=== PATIENT | female | born 2000 | race Caucasian/White ===

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

== ENCOUNTER 2020-03-25 13:27 | Emergency (ER) | payer BC, MEDICAID ==
--- NOTE | 2020-03-25 14:31 | ED Physician Documentation ---
PD HPI SYNCOPE - Stated complaint Stated Complaint: FAINTED/HEAD INJURY - Chief complaint Chief Complaint: Neuro - History obtained from History obtained from: Patient - History of Present Illness Witnessed: Witnessed Timing - onset: Today Duration: Seconds Preceding symptoms: Abdominal pain (she was at work, had not had breakfast nor much fluid this morning, and had right lateral abd cramping pain abruptly. [place] lightheaded as she went to water fountain and fainted. Reportedly she struck left lateral periorbital area as she fell. Alert within seconds. Concerned about her . Not having abd pain anymore.), Light headed, Generalized weakness Associated symptoms: Abdominal pain (briefly), Other (no vaginal bleeding nor fluid.) Contributing factors: Decreased PO intake, Noxious stimulae. No: Emotional upset Injury occurred: Fell, Head injury (left face). No: Neck injury Similar symptoms before: Has not had sx before Recently seen: Clinic (had [employer]/OB U/S few days ago that was normal.) Review of Systems Constitutional: denies: Fever, Chills Nose: denies: Rhinorrhea / runny nose, Congestion Throat: denies: Sore throat Respiratory: denies: Cough GI: reports: Nausea (consistent for past couple of months with the ). denies: Vomiting, Diarrhea : denies: Dysuria, Frequency, Discharge, Vaginal bleeding Skin: denies: Abrasion (s), Laceration (s) Neurologic: reports: Head injury. denies: Altered mental status, Headache, LOC PD PAST MEDICAL HISTORY - Past Medical History Past Medical History: Yes Neuro: Fainting - Past Surgical History Past Surgical History: No - Present Medications Home Medications: Ambulatory Orders Medication Instructions Recorded Confirmed Azithromycin [Zithromax] 250 mg PO DAILY #6 tablet 01/25/15 guaiFENesin/CODEINE [Robitussin AC] 5 ml PO Q6HR PRN #60 ml 01/25/15 Ondansetron Odt [Zofran] 4 mg TL Q6H PRN #20 tablet 03/25/20 Pyridoxine HCl (Vitamin B6) 25 mg PO BID #50 tablet 03/25/20 [Vitamin B-6] - Allergies Allergies/Adverse Reactions: Allergies Allergy/AdvReac Type Severity Reaction Status Date / Time No Known Drug Allergies Allergy Verified 03/25/20 13:40 - Social History Does the pt smoke?: No Smoking Status: Former smoker Does the pt drink ETOH?: No Does the pt have substance abuse?: No - Immunizations Immunizations are current?: Yes - POLST Patient has POLST: No PD ED PE NORMAL - Vitals Vital signs reviewed: Yes - General General: Alert and oriented X 3, No acute distress, Well developed/nourished - HEENT HEENT: PERRL, EOMI, Other (left lateral periorbital area with local tenderness, without abrasion/lac. No noted deformity. ) - Neck Neck: Supple, no meningeal sign, No adenopathy - Cardiac Cardiac: RRR, No murmur - Respiratory Respiratory: Clear bilaterally - Abdomen Abdomen: Normal bowel sounds, Soft, Non tender, No organomegaly, Other (lower abd fullness c/w , with fundus c/w dates. Bedside U/S showing normal IUP with good FHR, movement and amniotic fluid. ) Results - Vitals Vitals: Vital Signs - 24 hr 03/25/20 03/25/20 13:41 16:09 Temperature 36.5 C Heart Rate 69 68 Respiratory 14 18 Rate Blood Pressure 122/66 110/67 O2 Saturation 99 98 Oxygen O2 Source Room air - Labs Labs: Laboratory Tests 03/25/20 03/25/20 03/25/20 15:15 15:22 15:22 WBC 8.7 RBC 4.38 Hgb 12.8 Hct 38.1 MCV 87.0 MCH 29.2 MCHC 33.6 RDW 12.6 Plt Count 191 MPV 12.4 H Neut # (Auto) 6.5 Lymph # (Auto) 1.6 [place] # (Auto) 0.5 Eos # (Auto) 0.0 Baso # (Auto) 0.0 Absolute Nucleated RBC 0.00 Nucleated RBC % 0.0 Sodium 135 Potassium 3.8 Chloride 102 Carbon Dioxide 24 Anion Gap 9.0 BUN 7 Creatinine 0.5 Estimated GFR (MDRD) 159 Glucose 88 Calcium 9.2 Total Bilirubin 0.8 AST 13 ALT 11 Alkaline Phosphatase 36 L Total Protein 7.7 Albumin 4.1 Globulin 3.6 Albumin/Globulin Ratio 1.1 Lipase 31 Urine Color YELLOW Urine Clarity CLEAR Urine pH 6.5 Ur Specific [place] 1.010 Urine Protein NEGATIVE Urine Glucose (UA) NEGATIVE Urine Ketones NEGATIVE Urine Occult Blood NEGATIVE Urine Nitrite NEGATIVE Urine Bilirubin NEGATIVE Urine Urobilinogen 1 (NORMAL) Ur Leukocyte Esterase NEGATIVE Ur Microscopic Review NOT INDICATED Urine Culture Comments NOT INDICATED PD MEDICAL DECISION MAKING - ED course Complexity details: considered differential (pt does not have concussive symptoms, and clinically has low prob of ICH. Does not need imaging. ), d/w patient Departure - Departure Disposition: 01 Home, Self Care Clinical Impression: Episode of syncope Qualifiers: Syncope type: vasovagal syncope Qualified Code(s): R55 - Syncope and collapse Facial contusion Qualifiers: Encounter type: initial encounter Qualified Code(s): S00.83XA - Contusion of other part of head, initial encounter Qualifiers: Weeks of gestation: 13 weeks Qualified Code(s): Z3A.13 - 13 weeks gestation of Condition: Stable Record reviewed to determine appropriate education?: Yes Instructions: ED Syncope Vasovagal Prescriptions: Ondansetron Odt [Zofran] 4 mg TL Q6H PRN #20 tablet PRN Reason: Nausea / Vomiting Pyridoxine HCl (Vitamin B6) [Vitamin B-6] 25 mg PO BID #50 tablet Comments: Small frequent fluids and stay well-hydrated. Try to eat small amounts regularly through the day including breakfast. Tylenol if needed for pains every 4-6 hours as needed. Vitamin B6 twice daily for the next few weeks to reduce nausea overall. Additionally add ondansetron every 6 hours if needed for nausea. Follow-up with your [facility]. Your basic blood tests and urine test appear normal here. The bedside ultrasound showed a normal appearance of the uterus and fetus. I presume your pain that you had might of been a ligament or muscle pain. Presumedly your fainting episode was a combination of the response to the pain in conjunction with being under hydrated and often lower blood pressure in . Discharge Date/Time: 03/25/20 16:10
[2020-03-25] MEDS ORDERED: ACETAMINOPHEN 325 MG TABLET PO STA (15:14)
[2020-03-25] MEDS ORDERED: ONDANSETRON ODT 4 MG TABLET TL STA (15:14)
[2020-03-25 15:30] LABS: BASOPHILS % (AUTO) 0.2 %; EOSINOPHILS % (AUTO) 0.2 %; HGB - HEMOGLOBIN 12.8 g/dL (12.0-16.0); LYMPHOCYTES # (AUTO) 1.6 10^3/uL (1.5-3.5); MEAN CORPUSCULAR HEMOGLOBIN 29.2 pg (27.0-31.0); MEAN CORPUSCULAR HGB CONC 33.6 g/dL (32.0-36.0); MEAN PLATELET VOLUME 12.4 fL (7.9-10.8); MONOCYTES # (AUTO) 0.5 10^3/uL (0.0-1.0); MONOCYTES % (AUTO) 6.1 %; NEUTROPHILS # (AUTO) 6.5 10^3/uL (1.5-6.6); NEUTROPHILS % (AUTO) 75.3 %; PLT - PLATELET COUNT 191 10^3/uL (130-450); RED BLOOD COUNT 4.38 10^6/uL (4.20-5.40); RED CELL DISTRIBUTION WIDTH 12.6 % (12.0-15.0); WHITE BLOOD COUNT 8.7 x10^3/uL (4.8-10.8)
[2020-03-25 15:36] LABS: BILIRUBIN,URINE NEGATIVE (NEGATIVE); GLUCOSE, URINE (UA) NEGATIVE (NEGATIVE); KETONES,URINE (UA) NEGATIVE (NEGATIVE); LEUKOCYTE ESTERASE, URINE NEGATIVE (NEGATIVE); NITRITE,URINE NEGATIVE (NEGATIVE); OCCULT BLOOD,URINE NEGATIVE (NEGATIVE); PH,URINE 6.5 PH (5.0-7.5); PROTEIN,URINE NEGATIVE (NEGATIVE); UROBILINOGEN,URINE 1 (NORMAL) E.U./dL (NORMAL)
[2020-03-25 15:43] LABS: ALBUMIN 4.1 g/dL (3.2-5.5); ALBUMIN/GLOBULIN RATIO 1.1 (1.0-2.2); BILIRUBIN,TOTAL 0.8 mg/dL (0.2-1.0); CALCIUM 9.2 mg/dL (8.5-10.3); CREATININE 0.5 mg/dL (0.4-1.0); TOTAL PROTEIN 7.7 g/dL (6.7-8.2)
[2020-03-25 15:43] LABS: CLARITY,URINE CLEAR (CLEAR)
[2020-03-25 16:10] VITALS: BP 110/67
== END 2020-03-25 16:10 | disposition home or self-care (01) ==
LOC: ED 13:27
DX: O99.89 Other specified diseases and conditions complicating pregnancy, childbirth and the puerperium (principal); R55 Syncope and collapse; S00.83XA Contusion of other part of head, initial encounter; W18.39XA Other fall on same level, initial encounter; W22.09XA Striking against other stationary object, initial encounter; Y93.89 Activity, other specified; Y92.89 Other specified places as the place of occurrence of the external cause; Y99.0 Civilian activity done for income or pay; Z3A.13 13 weeks gestation of pregnancy; Z87.891 Personal history of nicotine dependence
CPT/HCPCS: 36415; 80053; 81003; 83690; 85025; 99283; 99284; A9270; Q0162; 81001; 87086

== ENCOUNTER 2020-08-10 09:59 | Outpatient (CLI) | payer MEDICAID ==
[2020-08-10 10:33] VITALS: BP 110/63
--- NOTE | 2020-08-11 18:07 | PROCEDURE REPORT ---
- HPI Diagnosis/Indication for NST: Intrauterine growth restriction Current EDU 09/28/20 Gestation 33 Weeks and 0 Days 1 Para 0 Vital Signs Temperature 98.2 F 08/10/20 10:26 Heart Rate 78 08/10/20 10:26 Respiratory Rate 18 08/10/20 10:26 Blood Pressure 110/63 08/10/20 10:26 O2 Saturation 99 08/10/20 10:26 Temperature 98.2 F 08/10/20 10:26 Heart Rate 78 08/10/20 10:26 Respiratory Rate 18 08/10/20 10:26 Blood Pressure 110/63 08/10/20 10:26 O2 Saturation 99 08/10/20 10:26 - NST Procedure NST Procedure Start Date 08/10/20 Start Time 10:17 Stop Time 10:45 Vibroacoustic Stimulation Used No Patient States Movement No - Results and Plan Findings/Impression: Category 1 NST [place] neg continue surveillance
== END 2020-08-10 11:00 | disposition home or self-care (01) ==
LOC: WFO 09:59 → FBP 10:07 → WFO 11:00
PROVIDERS: ATTEND Obstetrics & Gynecology
DX: O36.5930 Maternal care for other known or suspected poor fetal growth, third trimester, not applicable or unspecified (principal); Z3A.33 33 weeks gestation of pregnancy
CPT/HCPCS: 59025

== ENCOUNTER 2020-08-11 20:20 | Outpatient (CLI) | payer MEDICAID ==
[2020-08-11 21:05] VITALS: BP 122/71
--- NOTE | 2020-08-12 18:03 | PROCEDURE REPORT ---
- HPI Diagnosis/Indication for NST: Intrauterine growth restriction Current EDU 09/28/20 Gestation 33 Weeks and 1 Days 1 Para 0 Vital Signs Temperature 99.5 F 08/11/20 20:30 Heart Rate 100 08/11/20 20:30 Respiratory Rate 16 08/11/20 20:30 Blood Pressure 122/71 08/11/20 20:30 O2 Saturation 100 08/11/20 20:30 Temperature 99.5 F 08/11/20 20:47 Heart Rate 100 08/11/20 20:47 Respiratory Rate 16 08/11/20 20:47 Blood Pressure 122/71 08/11/20 20:47 O2 Saturation 100 08/11/20 20:47 - NST Procedure NST Procedure Start Time 10:17 Stop Time 10:45 - Results and Plan Findings/Impression: Category 1 NST [place] neg Unilateral back pain pt may call if desires a PT appointment.
--- NOTE | 2020-08-14 08:50 | PROVIDER PROGRESS NOTE ---
Subjective - Subjective Subjective: [facility] 09/28/20 Gestation 33 Weeks and 1 Days 1 Para 0 Vital Signs Temperature 99.5 F 08/11/20 20:30 Heart Rate 100 08/11/20 20:30 Respiratory Rate 16 08/11/20 20:30 Blood Pressure 122/71 08/11/20 20:30 O2 Saturation 100 08/11/20 20:30 Temperature 99.5 F 08/11/20 20:47 Heart Rate 100 08/11/20 20:47 Respiratory Rate 16 08/11/20 20:47 Blood Pressure 122/71 08/11/20 20:47 O2 Saturation 100 08/11/20 20:47 - NST Procedure NST Procedure Start Time 10:17 Stop Time 10:45 - Results and Plan Findings/Impression: Category 1 NST [place] neg Impression: lumbago. Plan: pt may call if desires a PT appointment.
== END 2020-08-11 21:15 | disposition home or self-care (01) ==
LOC: WFO 20:20 → FBP 20:22 → WFO 21:15
PROVIDERS: ATTEND Obstetrics & Gynecology
DX: O36.5930 Maternal care for other known or suspected poor fetal growth, third trimester, not applicable or unspecified (principal); O99.89 Other specified diseases and conditions complicating pregnancy, childbirth and the puerperium; M54.5 Low back pain; Z3A.33 33 weeks gestation of pregnancy
CPT/HCPCS: 59025; 99212

== ENCOUNTER 2020-08-19 11:03 | Outpatient (CLI) | payer MEDICAID ==
[2020-08-19 11:20] VITALS: BP 108/60
--- NOTE | 2020-08-19 13:16 | Ultrasound Report ---
PROCEDURE: OB Biophysical Profile INDICATIONS: non reactive NST OUTSIDE/PRIOR DATING DATA: Last menstrual period (LMP): Unsure. First dating scan (date and location): Not available. TECHNIQUE: Real-time scanning was performed of the fetus, with image documentation and biometric robbi surements. Biophysical profile was also obtained. COMPARISON: None available. FINDINGS: General: A single living intrauterine gestation is present. Presentation: Cephalic Placenta: Placental position is left anterior, without previa. Amniotic fluid index: 17.4 cm, within normal limits for gestational age. heart rate: 141 beats per minute. Maternal cervical canal: 3.3 cm long; normal length is 2.5 cm or more. biometrics: Biparietal diameter: 8.0 cm, 31 weeks 6 days Head circumference: 28.3 cm, 31 weeks Abdominal circumference: 27.5 cm, 31 weeks 4 days Femur length: 5.8 cm, 30 weeks 3 days Estimated gestational age from initial scan: not available. Composite gestational age from present scan: 31 weeks 2 days Estimated weight and percentile: 1724 g Measurement variability in biometric dating: +/- 10 days from 12-20 weeks gestation, +/- 2 weeks from 20-30 weeks gestation, +/- 3 weeks at 30 weeks gestation or later. Biophysical profile: Tone: 2 points. Movement: 2 points. Respiration: 0 points. Largest pocket of fluid: 2 points. 5.2 cm. Umbilical artery Doppler: Systolic/diastolic ratios of 3.5, 3.1, and 3.5. IMPRESSION: 1. Single living intrauterine patency demonstrated in cephalic position. 2. Composite gestational age of 31 weeks 2 days. Growth percentile unable to be calculated at this ti me in the absence of prior imaging studies or known last menstrual period. 3. Biophysical profile score of 6/8. respiration not visualized during course of the study. 4. Amniotic cord Doppler interrogation within normal limits with preserved diastolic flow. Reviewed by: Steve Munoz MD on 08/19/2020 12:15 PM [facility] Approved by: Steve Munoz MD on 08/19/2020 12:15 PM LUL Station ID: [id number]
--- NOTE | 2020-08-19 18:53 | PROVIDER PROGRESS NOTE ---
- HPI Chief Complaint: Other (Patient is a 20 yo at 34+2 wga with complicated by IUGR here with decreased FM. Followed by [facility]. Has had series on NRNST and all NST to be performed at [facility] 08/17/2020. Patient reports no significant FM in 2 days.) Current : Current EDU 09/28/20 Gestation 34 Weeks and 2 Days 1 Para 0 Vital Signs Temperature 99.1 F 08/19/20 11:15 Heart Rate 76 08/19/20 11:15 Respiratory Rate 17 08/19/20 11:15 Blood Pressure 108/60 08/19/20 11:15 O2 Saturation 99 08/19/20 11:15 Temperature 99.1 F 08/19/20 11:15 Heart Rate 76 08/19/20 11:15 Respiratory Rate 17 08/19/20 11:15 Blood Pressure 108/60 08/19/20 11:15 O2 Saturation 99 08/19/20 11:15 - Exam GEN:NAD HEENT: NCAT CV: RR RESP: nl effort ABD: gravid, S&NT/ND EXT:WWP NST 125 od marc 15x15 accels no decels TOCO: quiet BPP 6/8; less 2 for lack of resp effort - Procedures OB Procedure Performed: Other (BPP) NST Procedure: NST Procedure Start Date 08/19/20 Start Time 11:10 Stop Time 11:40 Vibroacoustic Stimulation Used No Patient States Movement decrease FM Service Date of procedure: 08/19/20 Procedure Details: Cat I tracing in setting of recurrent NRNST and decreased FM. BPP 6/8 Recommend repeat BPP in 24 hours. Patient scheduled to see MFM tomorrow. Contacted MFM office with update in care and will have BPP tomorrow in [place] Warning signs and kick counts reviewed. FU in clinic with MFM in 24 hours.
== END 2020-08-19 13:15 | disposition home or self-care (01) ==
LOC: WFO 11:03 → FBP 11:06 → WFO 13:15
PROVIDERS: ATTEND Obstetrics & Gynecology
DX: O36.8130 Decreased fetal movements, third trimester, not applicable or unspecified (principal); O36.5930 Maternal care for other known or suspected poor fetal growth, third trimester, not applicable or unspecified; Z3A.34 34 weeks gestation of pregnancy
CPT/HCPCS: 76819; 99214

== ENCOUNTER 2020-08-26 08:00 | Outpatient (CLI) | payer MEDICAID ==
[2020-08-26 21:06] LABS: TRICHOMONAS VAGINALIS DNA NEGATIVE (NEGATIVE)
== END 2020-08-26 23:59 | disposition home or self-care (01) ==
LOC: LAB.R 08:00
PROVIDERS: ATTEND Obstetrics & Gynecology
DX: O09.899 Supervision of other high risk pregnancies, unspecified trimester (principal)
CPT/HCPCS: 87491; 87591; 87661; 87797

== ENCOUNTER 2020-09-07 18:40 | Outpatient (CLI) | payer MEDICAID ==
[2020-09-07 19:03] VITALS: BP 130/65
--- NOTE | 2020-09-08 14:34 | PROVIDER PROGRESS NOTE ---
- HPI Chief Complaint: Labor Check Current : Current EDU 09/28/20 Gestation 37 Weeks and 0 Days 1 Para 0 Vital Signs Temperature 37.4 C 09/07/20 19:00 Heart Rate 105 H 09/07/20 19:00 Respiratory Rate 18 09/07/20 19:00 Blood Pressure 130/65 09/07/20 19:00 O2 Saturation 100 09/07/20 19:00 Temperature 37.4 C 09/07/20 19:08 Heart Rate 118 H 09/07/20 19:08 Respiratory Rate 16 09/07/20 19:08 Blood Pressure 130/65 09/07/20 19:08 O2 Saturation 99 09/07/20 19:08 - Procedures OB Procedure Performed: NST Diagnosis/Indication for NST: Other (Rule out labor) NST Procedure: NST Procedure Start Time 11:10 Stop Time 11:40 Findings: Reactive NST. no contractions minimal cervical changes. - Plan Plan: Continuwe with [facility]
== END 2020-09-07 19:40 | disposition home or self-care (01) ==
LOC: WFO 18:40 → FBP 18:43 → WFO 19:40
PROVIDERS: ATTEND Obstetrics & Gynecology
DX: Z34.03 Encounter for supervision of normal first pregnancy, third trimester (principal); Z3A.37 37 weeks gestation of pregnancy
CPT/HCPCS: 99213

== ENCOUNTER 2020-09-09 07:26 | Inpatient (IN) | payer BC, MEDICAID ==
[2020-09-09 09:14] LABS: BASOPHILS % (AUTO) 0.3 %; EOSINOPHILS # (AUTO) 0.1 10^3/uL (0.0-0.7); EOSINOPHILS % (AUTO) 0.9 %; HGB - HEMOGLOBIN 11.5 g/dL (12.0-16.0); LYMPHOCYTES # (AUTO) 1.8 10^3/uL (1.5-3.5); LYMPHOCYTES % (AUTO) 27.1 %; MEAN CORPUSCULAR HEMOGLOBIN 28.9 pg (27.0-31.0); MEAN CORPUSCULAR HGB CONC 33.5 g/dL (32.0-36.0); MEAN CORPUSCULAR VOLUME 86.2 fL (81.0-99.0); MEAN PLATELET VOLUME 12.4 fL (7.9-10.8); MONOCYTES # (AUTO) 0.7 10^3/uL (0.0-1.0); MONOCYTES % (AUTO) 10.4 %; NEUTROPHILS # (AUTO) 3.9 10^3/uL (1.5-6.6); NEUTROPHILS % (AUTO) 60.4 %; PLT - PLATELET COUNT 163 10^3/uL (130-450); RED BLOOD COUNT 3.98 10^6/uL (4.20-5.40); RED CELL DISTRIBUTION WIDTH 12.9 % (12.0-15.0); WHITE BLOOD COUNT 6.5 x10^3/uL (4.8-10.8)
[2020-09-09] MEDS ORDERED: METHYLERGONOVINE 0.2 MG/ML VIAL IM PRN ×2 (10:45)
[2020-09-09] MEDS ORDERED: TRANEXAMIC ACID 1,000 MG in SODIUM CHLORIDE 0.9% 100ML 100 ML IV PRN (10:45)
[2020-09-09] MEDS ORDERED: CARBOPROST TROMETHAMINE 250 MCG/ML AMP IM PRN ×2 (10:45)
[2020-09-09] MEDS ORDERED: miSOPROStoL 200 MCG TABLET BC PRN (10:45)
[2020-09-09] MEDS ORDERED: OXYTOCIN 10 UNIT/ML VIAL IM PRN (10:45)
[2020-09-09] MEDS ORDERED: TERBUTALINE 1 MG/ML VIAL SUBQ PRN (10:45)
[2020-09-09] MEDS ORDERED: LIDOCAINE-MPF 1% 30 ML VIAL ID PRN (10:45)
[2020-09-09] MEDS ORDERED: OXYTOCIN/SODIUM CHLORIDE 500 ML IV PRN ×2 (10:45)
[2020-09-09] MEDS ORDERED: SODIUM CHLORIDE FLUSH 0.9% 10 ML SYRINGE IVP PRN (10:45)
[2020-09-09] MEDS ORDERED: miSOPROStoL 200 MCG TABLET PR PRN (10:45)
--- NOTE | 2020-09-09 10:45 | ANESTHESIA ---
Pre-Anesthesia VS, & Labs - Diagnosis induction, IUP - Procedure Epidural for (early consult) Vital Signs: Temp Pulse Resp BP Pulse Ox 36.6 C 103 H 16 120/75 09/09/20 07:47 09/09/20 07:47 09/09/20 07:47 09/09/20 07:47 Height: 4 ft 11 in Weight (kg): 78.925 kg Body Mass Index: 35.1 BMI Classification: Obese - NPO Last Fluid Intake: t/o day Last Food Intake: breakfast, full - Is Patient ?: Yes - Lab Results Current Lab Results: Laboratory Tests 09/09/20 08:40: WBC 6.5, RBC 3.98 L, Hgb 11.5 L, Hct 34.3 L, MCV 86.2, MCH 28.9, MCHC 33.5, RDW 12.9, Plt Count 163, MPV 12.4 H, Neut # (Auto) 3.9, Lymph # (Auto) 1.8, [place] # (Auto) 0.7, Eos # (Auto) 0.1, Baso # (Auto) 0.0, Absolute Nucleated RBC 0.00, Nucleated RBC % 0.0 Lab results reviewed: Yes Fish Bones: 09/09/20 08:40 Home Medications and Allergies Allergies/Adverse Reactions: Allergies Allergy/AdvReac Type Severity Reaction Status Date / Time No Known Drug Allergies Allergy Verified 03/25/20 13:40 Anes History & Medical History - Anesthetic History Anesthesia Complications: reports: No previous complications Family history of Anesthesia Complications: Denies Family history of Malignant Hyperthermia: Denies - Medical History Cardiovascular: reports: None Pulmonary: reports: None Gastrointestinal: reports: None Urinary: reports: None Neuro: reports: Seizure disorder (as child, resolved, no meds), Fainting Musculoskeletal: reports: None Endocrine/Autoimmune: reports: None Blood Disorders: reports: None Smoking Status: Former smoker Psychosocial: reports: No issues indicated History of Cancer?: No Exam General: Alert, Oriented x3, Cooperative Dental: WNL Mouth Openin Fingerbreadth Neck Mobility: Normal Mallampati classification: II Thyromental Distance: 4-6 cm Respiratory: Lungs clear, Normal breath sounds, No respiratory distress Cardiovascular: Regular rate Neurological: Normal speech Mental/Cognitive Status: Alert/Oriented X3, Normal for patient Cognitive Status: Within normal limits Plan Anesthesia Type: Epidural Consent for Procedure(s) Verified and Reviewed: Yes Code Status: Attempt Resuscitation ASA classification: 2-Mild systemic disease Is this case an emergency?: No
--- NOTE | 2020-09-09 10:45 | HISTORY & PHYSICAL EXAMINATION ---
History of Present Illness - History of Present Illness HPI Comment/Other: CC: induction of labor HPI: here for IOL due to IUGR. Had some contractions last hs q10min but they have resolved. No VB, no LOF. Good FM. ROS: no fevers, no cough, feeling well. PMH: --syncope related to pain --Episode of status seizure at 8yo requiring induced coma for 4 days. No true seizures since that time. Pt has never been on antiseizure medications. Mother of patient reports normal EEG and brain imaging at 14yo. Episodes of syncope can be "stopped" by sitting down. No hx of cardiac abnormalities and pt does not feel an irregular heart beat when she feels faint. No episodes of incontinence. --[place] --Persistent n/v of , emesis weekly --Learning disability with dyslexia, needing special education in school, did graduate high school PSH: neg Allergies: neg Meds: PNV, iron, B6. PRN zofran and [place] SH: no t/e/d. Lives with partner's mother. FH: no anesthesia problems OB: G1=current, initial care in [place]. RAFAELA 09/28/20 by 12w6d US on 03/22/20. LMP unknown. Anatomy normal, fundal placenta, normal fluid, EFW 7%ile GBS neg, STI neg, A+, RI, , 1h 97 S/p Tdap and flu vax Complications: IUGR diagnosed at 24w anatomy scan, not ideally dated (by 12w US alone). S/p MFM consultation with persistent EFW <10%ile, normal fluid. Last S/D ratio was 3.1 in the 85%ile O: AVSS Alert, pleasant, NAD. Relies on mother to answer some medical questions. Abd soft, nt/nd, gravid SVE fingertip/50/-3 Cervical balloon placed with speculum without difficulty Hct 34 NST category 1 [place] irregular UCs A/P: 20yo G1 at 37w2d by 12w6d US here for indicated IOL due to persistent IUGR with borderline abnormal dopplers. Baby tolerating spontaneous contractions well. Plan ripening with balloon + pitocin. Pt aware that her risk of c- section is a bit higher due to the IUGR. Hx of seizure disorder, no seizures for the past 10y. Early epidural for pain control. Lorazepam and keppra in the pyxis PRN. Episodes of syncope related to pain: pt will call RN PRN feeling faint, FOB aware of where emergency alerts are, maintain hydration, ambulate with assist PRN. VTE prophylaxis: extended period of epidural anticipated, will use SCDs as able once epidural has been placed. Fetus: Vertex, IUGR, normal anatomy, no genetic screening done, category 1 NST. History - Past Medical History Neuro: reports: Fainting MRSA Hx?: No - POLST Patient has POLST: No Meds/Allgy - Home Medications Home Medications: Ambulatory Orders Medication Instructions Recorded Confirmed Azithromycin [Zithromax] 250 mg PO DAILY #6 tablet 01/25/15 guaiFENesin/CODEINE [Robitussin AC] 5 ml PO Q6HR PRN #60 ml 01/25/15 Ondansetron Odt [Zofran] 4 mg TL Q6H PRN #20 tablet 03/25/20 Pyridoxine HCl (Vitamin B6) 25 mg PO BID #50 tablet 03/25/20 [Vitamin B-6] - Allergies Allergies/Adverse Reactions: Allergies Allergy/AdvReac Type Severity Reaction Status Date / Time No Known Drug Allergies Allergy Verified 03/25/20 13:40 Exam - Vital Signs Vital Signs: Vital Signs x48h Temp Pulse Resp BP 09/09/20 07:47 97.9 F 103 H 16 120/75 Conclusion/Plan - Lab Results Fish Bones: 09/09/20 08:40
[2020-09-09] MEDS ORDERED: levETIRAcetam INJ 1,000 MG in SODIUM CHLORIDE 0.9% 100ML 100 ML IV PRN (10:52)
[2020-09-09] MEDS ORDERED: LORazepam 2 MG/ML VIAL IVP PRN (10:53)
[2020-09-09] MEDS: OXYTOCIN/SODIUM CHLORIDE 500 ML IV SCH (11:28)
[2020-09-09] MEDS: LACTATED RINGERS 1,000 ML IV SCH ×2 (11:28→22:07)
[2020-09-09] MEDS ORDERED: ZOLPIDEM 5 MG TABLET PO PRN (11:42)
[2020-09-09] MEDS ORDERED: FAMOTIDINE 20 MG/2 ML SYRINGE IVP PRN (11:42)
[2020-09-09] MEDS ORDERED: MAG HYDROX/AL HYDROX/SIMETH 30 ML UDC PO PRN (11:42)
[2020-09-09 14:31] LABS: CREATININE,URINE 61.4 mg/dL; PROTEIN/CREATININE RATIO,URINE 0.1 (<=0.2)
[2020-09-09] MEDS ORDERED: SODIUM CHLORIDE FLUSH 0.9% 10 ML SYRINGE IVP SCH (17:00)
[2020-09-09] MEDS: fentaNYL 100 MCG/2 ML VIAL IVP PRN (22:07)
[2020-09-09 22:31] LABS: RUPTURE OF MEMBRANES PLUS POSITIVE (NEGATIVE)
[2020-09-10] MEDS: LACTATED RINGERS 1,000 ML IV SCH (04:28)
[2020-09-10] MEDS: ONDANSETRON 4 MG/2 ML VIAL IVP PRN ×2 (08:17→08:18)
--- NOTE | 2020-09-10 08:50 | PROVIDER PROGRESS NOTE ---
Subjective - Subjective Subjective: S: mild UC, able to sleep last night, no pelvic sensations other than the contractions, O: AVSS, smiling, NAD, does not change demeanor with contractions SVE 4-5/100/-2. AROM forebag clear. Category 1 NST, toco q3-4 A/P: G1 37w IOL for IUGR, baby tolerating very well. No SVE change since balloon was removed at 12h even though she had SROM a few hours later. Increasing pitocin has not helped. AROM forebag now, recheck SVE in 1h. If unchanged then doubtful that increasing pitocin will help much so will transition to misoprostol. Anticipate when UC become adequate. Objective - Vital Signs/Intake & Output Intake & Output: Intake & Output 09/07/20 09/08/20 09/09/20 09/10/20 23:59 23:59 23:59 23:59 Intake Total 1048.75 476.25 Output Total 1075 Balance -26.25 476.25 - Lab Results Fish Bones: 09/09/20 08:40 Other Labs: Lab Results x24hrs 09/09/20 09/09/20 09/09/20 Range/Units 21:35 12:18 08:40 WBC 6.5 (4.8-10.8) x10^3/uL RBC 3.98 L (4.20-5.40) 10^6/uL Hgb 11.5 L (12.0-16.0) g/dL Hct 34.3 L (37.0-47.0) % MCV 86.2 (81.0-99.0) fL MCH 28.9 (27.0-31.0) pg MCHC 33.5 (32.0-36.0) g/dL RDW 12.9 (12.0-15.0) % Plt Count 163 (130-450) 10^3/uL MPV 12.4 H (7.9-10.8) fL Neut # (Auto) 3.9 (1.5-6.6) 10^3/uL Lymph # (Auto) 1.8 (1.5-3.5) 10^3/uL [place] # (Auto) 0.7 (0.0-1.0) 10^3/uL Eos # (Auto) 0.1 (0.0-0.7) 10^3/uL Baso # (Auto) 0.0 (0.0-0.1) 10^3/uL Absolute Nucleated RBC 0.00 x10^3/uL Nucleated RBC % 0.0 /100WBC Urine Creatinine 61.4 mg/dL Ur Total Protein Timed 6 mg/dL Protein/Creatinin Ratio 0.1 (<=0.2) Membranes Rupture POSITIVE A (NEGATIVE)
[2020-09-10] MEDS ORDERED: ROPIVACAINE 0.2% 0 MG/0 ML BAG EP ONE (09:38)
[2020-09-10] MEDS: fentaNYL 100 MCG/2 ML VIAL IVP PRN (09:41)
[2020-09-10] MEDS ORDERED: fentaNYL 100 MCG/2 ML VIAL ONE (09:45)
--- NOTE | 2020-09-10 10:02 | ANESTHESIA PROCEDURE NOTE ---
Anesthesia Epidural Template - Other Comments Other Comments: Called to place epidural. Patient was unwilling to sit up on side of bed for placement and had limited ability to maintain stillness. Nurse administered IV fentanyl to help with pain control and afterwards, patient remained unable to safely position herself for Epidural placement. Patient was examined by RN and found to be complete. At this point, epidural placement was not appropriate but will be available if circumstances change.
[2020-09-10] MEDS ORDERED: METHYLERGONOVINE 0.2 MG/ML VIAL ONE (10:13)
[2020-09-10] MEDS ORDERED: LIDOCAINE-MPF 1% 30 ML VIAL ONE (10:13)
[2020-09-10] MEDS ORDERED: HYDROCORTISONE 1% CREAM 28 GM TUBE PR PRN (10:31)
[2020-09-10] MEDS ORDERED: WITCH HAZEL/GLYCERIN 1 PAD TOP PRN (10:31)
[2020-09-10] MEDS ORDERED: ONDANSETRON ODT 4 MG TABLET TL PRN (10:31)
[2020-09-10] MEDS ORDERED: SIMETHICONE CHEW 80 MG TABLET PO PRN (10:31)
[2020-09-10] MEDS ORDERED: OXYTOCIN/SODIUM CHLORIDE 500 ML IV SCH (11:00)
[2020-09-10] MEDS: ACETAMINOPHEN 500 MG TABLET PO SCH ×2 (14:03→21:58)
[2020-09-10] MEDS: IBUPROFEN 600 MG TABLET PO SCH ×2 (14:04→20:13)
[2020-09-10] MEDS: OXYTOCIN/SODIUM CHLORIDE 500 ML IV SCH (14:07)
--- NOTE | 2020-09-10 17:41 | DELIVERY NOTE ---
Delivery Note - Labor Labor: positive: Induced by oxytocin - Infant Delivery Method Delivery Method: positive: Spontaneous vaginal delivery - Cervical Ripening Method Cervical Ripening Method: positive: Balloon device, Oxytocin - Presentation Presentation: positive: Vertex - Nuchal Cord Nuchal Cord: positive: Present (2x, not able to be reduced, clamped x2 and cut on perineum) - Anesthetic Anesthetic Type: - Amniotic Fluid Description Amniotic Fluid Description: positive: Clear - Laceration Laceration: positive: None - Delivery Outcome Delivery Outcome: positive: Livebirth - [place]: positive: Placed in direct skin contact with mother, Stimulated, Warmed, [place] used [place] sex: positive: Female - Cord Cord: positive: 3 vessels - Placenta Placenta: positive: Intact, Spontaneous - Estimated Blood Loss Estimated Blood Loss (in cc): 500 - Post Delivery Events Post Delivery Events: positive: No post delivery events - Delivery Comments (Free Text/Narrative) Delivery Comments (Free Text/Narrative): 1st stage: IOL for IUGR in 2-7%ile since her 20w ultrasound. Started with balloon and pitocin. Stalled at 6cm but then rapidly progressed after AROM of forebag. 2nd stage: Pushed effectively over a few minutes to deliver OA over an intact perineum. FHT's were in the 70s at , was preparing for episiotomy, but she delivered. Double nuchal cord. Shoulders and body easily delivered. 3rd stage: Placenta delivered spontaneously/intact. Active management of the 3rd stage performed with pitocin bolus after delivery of the baby. Had gushes of bleeding inconsistent with usual. Treated with pitocin followed by methergine. Bleeding improved but continued. Tranexamic acid given. Total EBL was fine at 500cc and bleeding tapered off quickly after the TXA. Uterine tone was excellent throughout. Bimanual massage performed throughout. No lacerations. Patient with learning disabilities, will get a high school social science teacher consult for community resources. Has good support at home.
[2020-09-10] MEDS: DOCUSATE SODIUM 100 MG CAPSULE PO SCH (20:41)
[2020-09-11] MEDS: IBUPROFEN 600 MG TABLET PO SCH ×3 (02:00→09:35)
[2020-09-11] MEDS: ACETAMINOPHEN 500 MG TABLET PO SCH ×2 (05:31→13:42)
[2020-09-11] MEDS: DOCUSATE SODIUM 100 MG CAPSULE PO SCH (09:35)
--- NOTE | 2020-09-11 13:05 | PROVIDER PROGRESS NOTE ---
Subjective - Subjective Subjective: Feeling well. Eating, ambulating, urinating well. No heavy bleeding or significant pain. Mood is good. AVSS alert, smiling, NAD. Abd soft, nt/nd. Fundus firm, NT, at umbilicus. No LE edema. A/P: 20yo P1 PPD#1 s/p at term, doing well. Social work consult for her learning disabilities Rh +, RI, , s/p Tdap and flu vax, <21yo no pap. Objective - Vital Signs/Intake & Output Vital Signs: Vital Signs x48h Temp Pulse Resp BP Pulse Ox 09/11/20 09:00 97.9 F 61 18 99/52 L 100 Intake & Output: Intake & Output 09/08/20 09/09/20 09/10/20 09/11/20 23:59 23:59 23:59 23:59 Intake Total 1048.75 1500.10 Output Total 1075 450 Balance -26.25 1050.10 - Lab Results Fish Bones: 09/09/20 08:40
[2020-09-12 06:20] VITALS: BP 122/73
--- NOTE | 2020-09-12 08:50 | Discharge Plan ---
Discharge Plan Problem Reviewed?: Yes Disposition: Home, Self Care Condition: Good Diet: Regular Activity Restrictions: pelvic rest x6w Shower Restrictions: No Driving Restrictions: No No Smoking: If you smoke, Please STOP! Call for help. Follow-up with: Nelia Burk MD [Provider Admit Priv/Credential] - 1 Week
[2020-09-12] MEDS: DOCUSATE SODIUM 100 MG CAPSULE PO SCH (09:14)
--- NOTE | 2020-09-12 13:42 | Labor Flowsheet ---
Labor Flowsheet Datetime Report Generated by CPN: 09/12/2020 13:42 Datetime: 09/12/2020 09:16 VITAL SIGNS NBP Sys/Anuradha/Mean (mmHg): 124 : 81 : 91 Pulse: 65 Datetime: 09/10/2020 19:34 SpO2 (%): 98 Datetime: 09/10/2020 12:30 Stage of : Datetime: 09/10/2020 11:36 PAIN Pain Scale: 0 Pain Assessment Comments: resting Datetime: 09/10/2020 11:19 Medication Comments: bolus completed, Pitocin restarted 50ml/hr Datetime: 09/10/2020 10:45 Pain Goal: 6 Datetime: 09/10/2020 10:38 Temperature (C): 37.0 Datetime: 09/10/2020 10:11 MEDICATIONS Pitocin (milliunits): Started @ 50mu/ PP pit started Datetime: 09/10/2020 10:09 Patient Care Comments: 02 off/stopped Datetime: 09/10/2020 10:08 UTERINE ACTIVITY Monitor Mode: Palpation Frequency (min): 2-3 Quality: Strong Duration (sec): 50-60 Pattern: Normal: <= 5 Contractions in 10 Minutes Resting Tone (Palpate): Relaxed ASSESSMENT A Monitor Mode: Telemetry FHR Baseline Changes: No Baseline Change Variability: Moderate 6-25 bpm Accelerations: None Decelerations: Late; Variable Category: Category II Datetime: 09/10/2020 10:04 LaborFlag: Labor Datetime: 09/10/2020 10:00 Comments: MD aware of decelerations Datetime: 09/10/2020 09:56 COMMUNICATION Communication: Provider at Bedside Datetime: 09/10/2020 09:51 VAGINAL EXAM Dilatation (cm): 10.0 Effacement (%): 100 Station: 1 Exam by: c. gambs Datetime: 09/10/2020 09:41 Analgesics/Sedatives: Fentanyl (mcg) @ 100mcg Datetime: 09/10/2020 09:30 FHR Baseline Rate : 135 Datetime: 09/10/2020 09:27 Communication Comments: recheck 1hr, place eugene after pt. comfortable with epidural and call MD. Datetime: 09/10/2020 09:15 Patient Position/Activity: Right Lateral Datetime: 09/10/2020 09:12 Monitor Interventions for UA: [place] Adjusted Datetime: 09/10/2020 09:02 Monitor Interventions for FHR: Ultrasound Adjusted Datetime: 09/10/2020 08:53 Pain Coping: Crying Comfort Measures: Coaching; Family Support Datetime: 09/10/2020 08:18 Antiemetics/Antacids: Zofran (mg) @ 4mg Datetime: 09/10/2020 08:10 Membranes Rupture Method: Artificial Amniotic Fluid Color: Clear Amniotic Fluid Amount: Small Amniotic Fluid Odor: Normal Datetime: 09/10/2020 08:09 Vaginal Bleeding: None Vaginal Exam Comments: no change Datetime: 09/10/2020 08:07 TEACHING Instructional Method: Verbal Plan of Care: Plan of Care Discussed; Vaginal Delivery; Labor; Induction Labor/Induction: Labor Stages; Induction; Artificial Rupture of Membranes Pain Management: Epidural Teaching Comments: Dr. Burk discussing POC Datetime: 09/10/2020 07:55 Cervix, Consistency: Soft Cervix, Position: Midposition Datetime: 09/10/2020 07:32 I/O Interventions: Up to BR Datetime: 09/10/2020 07:29 Unit Routine: Visiting Policy Medications: Cervical Ripening Related: Common Discomforts of Datetime: 09/10/2020 07:27 MATERNAL ASSESSMENT Level of Consciousness: Alert DTR's/Clonus: DTRs 2+; No Clonus Headache: Denies Breath Sounds, Left: Clear and Equal Breath Sounds, Right: Clear and Equal Nausea/Vomiting: Denies RUQ Epigastric Pain: Denies Datetime: 09/10/2020 07:26 Pitocin Checklist: At Least 1 Acceleration of 15 bpm x 15 Seconds in 30 Minutes or Adequate Variabi lity; No More than 1 Late Deceleration Occurred in Past 30 Minutes; No More than 2 Variable Decelerat ions > 60 Seconds in Duration and decreasing >60 bpm in 30 minutes; No More than 5 Uterine Contractio ns in 10 Minutes for any 20 Minute Interval Datetime: 09/10/2020 07:21 Pain Presence: None/Denies Datetime: 09/10/2020 07:00 Oxygen Method: Room Air Datetime: 09/10/2020 06:36 Pain Type: Contraction Pain Location: Abdomen Datetime: 09/10/2020 06:11 Respirations: 16 Datetime: 09/10/2020 05:30 Pain Relief Measures: Comfort Measures Datetime: 09/10/2020 02:02 Provider Notified (Name): Bhargavi Datetime: 09/09/2020 22:10 PATIENT CARE IV/Blood Work: New IV Bag Hung Datetime: 09/09/2020 22:00 Contraction Comments: Pt was getting up to BR, ROM+ collection and VE and had not yet adjusted toco Datetime: 09/09/2020 21:00 Membrane Status: Ruptured Membranes Ruptured Date/Time: 09/09/2020 21:00 Datetime: 09/09/2020 18:00 Notification Reason: Status Update
--- NOTE | 2020-09-12 18:41 | DISCHARGE SUMMARY ---
Physician: Nelia Burk MD DATE OF ADMISSION: 09/09/2020 DATE OF DISCHARGE: 09/12/2020 ADMISSION DIAGNOSES 1. Intrauterine at 37 weeks. 2. Intrauterine growth restriction. 3. Learning disability of unknown characterization. DISCHARGE DIAGNOSES 1. Status post spontaneous vaginal delivery at term. 2. Learning disability. OPERATIONS AND PROCEDURES: On 09/10/2020, spontaneous vaginal delivery of a liveborn female, uncompl icated. HOSPITAL COURSE: The patient was induced for her IUGR at 37 weeks. She was induced with Pitocin and a cervical ripening balloon as well as AROM. She was not medicated and did very well. Her postpar laura course was complicated by her learning disabilities. She seems to have slow cognitive processing speed. She is very attentive to her baby and loving to her baby. She has good support and her part ner, mother, and [id number]. Social work was contacted and they were offered community resources. Infant care at home was reinforced multiple times by the nursing staff and shaken baby precautions were also given repeatedly. The patient does live with her qbxcrn-vm-gxi who appears to be without c ognitive disability. By day #2, she was eating, ambulating, and urinating without difficulties. She has chosen to bottle feed. She was not having any heavy bleeding or significant pain. No mood changes. She i s afebrile with normal vital signs. Alert and smiling, and in no apparent distress. Abdomen is soft , nontender, and nondistended. Fundus firm, nontender, and at the umbilicus. No lower extremity clu bbing, cyanosis or edema. Pre-delivery hematocrit was 34.3 and estimated blood loss was normal. She is Rh positive, rubella im mune, varicella immune, and has received both her Tdap and influenza vaccines. She did not have a Pa p smear. She is under 21 years old. DISCHARGE INSTRUCTIONS: Routine precautions given. Followup in 1 week in the clinic. DISCHARGE DISPOSITION: Home. CONDITION: Good. TD: 09/12/2020 08:49
== END 2020-09-12 13:40 | disposition home or self-care (01) | DRG 807 ==
LOC: WFO 07:26 → FBP 07:28 → WFO 10:44 → FBP 10:45
PROVIDERS: ADMIT Obstetrics & Gynecology; ATTEND Obstetrics & Gynecology
PROC: 0U7C7ZZ Dilation of Cervix, Via Natural or Artificial Opening (ICD-10-PCS; 2020-09-09)
PROC: 3E033VJ Introduction of Other Hormone into Peripheral Vein, Percutaneous Approach (ICD-10-PCS; 2020-09-09)
PROC: 10E0XZZ Delivery of Products of Conception, External Approach (ICD-10-PCS; principal; 2020-09-10)
PROC: 10907ZC Drainage of Amniotic Fluid, Therapeutic from Products of Conception, Via Natural or Artificial Opening (ICD-10-PCS; 2020-09-10)
DX: O36.5930 Maternal care for other known or suspected poor fetal growth, third trimester, not applicable or unspecified (principal); Z37.0 Single live birth; O67.9 Intrapartum hemorrhage, unspecified; O99.344 Other mental disorders complicating childbirth; F81.0 Specific reading disorder; Z3A.37 37 weeks gestation of pregnancy
CPT/HCPCS: 82570; 84112; 84156; 85025; A9270; J2210; J7120

== ENCOUNTER 2020-09-16 08:00 | Outpatient (CLI) | payer BC, MEDICAID ==
[2020-09-16 16:01] LABS: BILIRUBIN,URINE NEGATIVE (NEGATIVE); GLUCOSE, URINE (UA) NEGATIVE (NEGATIVE); KETONES,URINE (UA) NEGATIVE (NEGATIVE); LEUKOCYTE ESTERASE, URINE SMALL (NEGATIVE); NITRITE,URINE NEGATIVE (NEGATIVE); OCCULT BLOOD,URINE LARGE (NEGATIVE); PROTEIN,URINE NEGATIVE (NEGATIVE); UROBILINOGEN,URINE 4 E.U./dL (NORMAL)
[2020-09-16 16:17] LABS: BACTERIA,URINE Many /HPF (None Seen); CLARITY,URINE CLEAR (CLEAR); RBC,URINE 0-5 /HPF (0-5); SQUAMOUS EPITHELIAL CELL,UR NONE SEEN (<= Few); WBC CLUMPS,URINE PRESENT
== END 2020-09-16 23:59 | disposition home or self-care (01) ==
LOC: LAB.R 08:00
PROVIDERS: ATTEND Obstetrics & Gynecology
DX: R30.0 Dysuria (principal)
CPT/HCPCS: 81001; 87086; 87181

== ENCOUNTER 2020-12-15 16:50 | Outpatient (CLI) | payer BC, MEDICAID ==
[2020-12-15 20:51] LABS: BILIRUBIN,URINE NEGATIVE (NEGATIVE); GLUCOSE, URINE (UA) NEGATIVE (NEGATIVE); KETONES,URINE (UA) NEGATIVE (NEGATIVE); LEUKOCYTE ESTERASE, URINE NEGATIVE (NEGATIVE); NITRITE,URINE POSITIVE (NEGATIVE); OCCULT BLOOD,URINE NEGATIVE (NEGATIVE); PH,URINE 6.5 PH (5.0-7.5); PROTEIN,URINE NEGATIVE (NEGATIVE); UROBILINOGEN,URINE 0.2 (NORMAL) E.U./dL (NORMAL)
[2020-12-15 20:53] LABS: CLARITY,URINE HAZY (CLEAR)
[2020-12-15 20:56] LABS: BACTERIA,URINE Many /HPF (None Seen); RBC,URINE 0-5 /HPF (0-5); SQUAMOUS EPITHELIAL CELL,UR FEW Squamous (<= Few)
== END 2020-12-15 23:59 | disposition home or self-care (01) ==
LOC: LAB.R 16:50
PROVIDERS: ATTEND Emergency Medicine
DX: N39.0 Urinary tract infection, site not specified (principal)
CPT/HCPCS: 81001; 87086; 87181

== ENCOUNTER 2022-12-18 21:04 | Emergency (ER) | payer BC, MEDICAID ==
[2022-12-18 21:33] LABS: BASOPHILS % (AUTO) 0.4 %; EOSINOPHILS # (AUTO) 0.1 10^3/uL (0.0-0.7); EOSINOPHILS % (AUTO) 0.8 %; HGB - HEMOGLOBIN 13.5 g/dL (12.0-16.0); LYMPHOCYTES # (AUTO) 2.8 10^3/uL (1.5-3.5); MEAN CORPUSCULAR HEMOGLOBIN 28.2 pg (27.0-31.0); MEAN CORPUSCULAR HGB CONC 32.1 g/dL (32.0-36.0); MEAN CORPUSCULAR VOLUME 87.9 fL (81.0-99.0); MEAN PLATELET VOLUME 12.1 fL (7.9-10.8); NEUTROPHILS # (AUTO) 6.8 10^3/uL (1.5-6.6); NEUTROPHILS % (AUTO) 63.5 %; PLT - PLATELET COUNT 287 10^3/uL (130-450); RED BLOOD COUNT 4.78 10^6/uL (4.20-5.40); RED CELL DISTRIBUTION WIDTH 12.6 % (12.0-15.0); WHITE BLOOD COUNT 10.7 x10^3/uL (4.8-10.8)
[2022-12-18 21:38] LABS: BILIRUBIN,URINE NEGATIVE (NEGATIVE); GLUCOSE, URINE (UA) NEGATIVE (NEGATIVE); KETONES,URINE (UA) NEGATIVE (NEGATIVE); LEUKOCYTE ESTERASE, URINE NEGATIVE (NEGATIVE); NITRITE,URINE NEGATIVE (NEGATIVE); OCCULT BLOOD,URINE LARGE (NEGATIVE); PROTEIN,URINE NEGATIVE (NEGATIVE); UROBILINOGEN,URINE 0.2 (NORMAL) E.U./dL (NORMAL)
[2022-12-18 21:44] LABS: CLARITY,URINE CLEAR (CLEAR)
--- NOTE | 2022-12-18 21:45 | ED Physician Documentation ---
PD HPI ABD PAIN - Stated complaint Stated Complaint: ABD PX - Chief complaint Chief Complaint: Abd Pain - History obtained from History obtained from: Patient - Additional information Additional information: Previously healthy 22-year-old woman with no history of abdominal surgeries presents with intermittent right-sided abdominal pain radiating to the back for the last 4 days. Last about 20 minutes at a time. Then goes away completely. It is not associated with nausea or changes in bowel movements but she did noticed some inability to urinate at 1 point. No other urinary symptoms and no hematuria. Prior to 4 days ago had never had this before. Pain is not associated with eating. PD PAST MEDICAL HISTORY - Past Medical History Cardiovascular: None Respiratory: None Neuro: Fainting Endocrine/Autoimmune: None GI: None : None Musculoskeletal: None - Past Surgical History Past Surgical History: No - Present Medications Home Medications: Ambulatory Orders Medication Instructions Recorded Confirmed Azithromycin [Zithromax] 250 mg PO DAILY #6 tablet 01/25/15 guaiFENesin/CODEINE [Robitussin AC] 5 ml PO Q6HR PRN #60 ml 01/25/15 Ondansetron Odt [Zofran] 4 mg TL Q6H PRN #20 tablet 03/25/20 Pyridoxine HCl (Vitamin B6) 25 mg PO BID #50 tablet 03/25/20 [Vitamin B-6] - Allergies Allergies/Adverse Reactions: Allergies Allergy/AdvReac Type Severity Reaction Status Date / Time No Known Drug Allergies Allergy Verified 12/18/22 21:07 - Social History Does the pt smoke?: No Smoking Status: Former smoker Does the pt drink ETOH?: No Does the pt have substance abuse?: No - Immunizations Immunizations are current?: Yes - POLST Patient has POLST: No PD ED PE NORMAL - Vitals Vital signs reviewed: Yes - General General: Alert and oriented X 3, No acute distress - Abdomen Abdomen: Normal bowel sounds, Soft, Other (Mild right lower quadrant tenderness without surgical signs) - Back Back: No CVA TTP - Neuro Neuro: Alert and oriented X 3, Normal speech Results - Vitals Vitals: Vital Signs - 24 hr 12/18/22 12/18/22 21:07 21:47 Temperature 36.8 C Heart Rate 98 88 Respiratory 18 Rate Blood Pressure 135/72 H 129/79 O2 Saturation 98 100 Oxygen O2 Source Room air - Labs Labs: Laboratory Tests 12/18/22 12/18/22 12/18/22 21:24 21:24 21:24 WBC 10.7 RBC 4.78 Hgb 13.5 Hct 42.0 MCV 87.9 MCH 28.2 MCHC 32.1 RDW 12.6 Plt Count 287 MPV 12.1 H Neut # (Auto) 6.8 H Lymph # (Auto) 2.8 [place] # (Auto) 1.0 Eos # (Auto) 0.1 Baso # (Auto) 0.0 Absolute Nucleated RBC 0.00 Nucleated RBC % 0.0 Sodium 138 Potassium 3.5 Chloride 103 Carbon Dioxide 24 Anion Gap 11.0 BUN 14 Creatinine 0.6 Estimated GFR (MDRD) 125 Glucose 98 Calcium 9.2 Total Bilirubin 0.5 AST 15 ALT 13 Alkaline Phosphatase 59 Total Protein 7.7 Albumin 4.3 Globulin 3.4 Albumin/Globulin Ratio 1.3 Lipase 46 Urine Color YELLOW Urine Clarity CLEAR Urine pH 6.0 Ur Specific [place] >=1.030 H Urine Protein NEGATIVE Urine Glucose (UA) NEGATIVE Urine Ketones NEGATIVE Urine Occult Blood LARGE H Urine Nitrite NEGATIVE Urine Bilirubin NEGATIVE Urine Urobilinogen 0.2 (NORMAL) Ur Leukocyte Esterase NEGATIVE Urine RBC TNTC H Urine WBC 4-5 Ur Squamous Epith Cells FEW Squamous Urine Bacteria Few Ur Microscopic Review INDICATED Urine Culture Comments NOT INDICATED PD Medical Decision Making - ED course ED course: 22-year-old woman with intermittent right-sided abdominal pain. CBC reviewed with mild leukocytosis. CMP reviewed and normal. Urinalysis notable for hematuria. Care to Dr. Le at shift change pending CT read. Patient had been declining pain medication. Departure - Departure Clinical Impression: Abdominal pain Condition: Stable
[2022-12-18 21:47] LABS: ALBUMIN 4.3 g/dL (3.2-5.5); ALBUMIN/GLOBULIN RATIO 1.3 (1.0-2.2); BILIRUBIN,TOTAL 0.5 mg/dL (0.2-1.0); CALCIUM 9.2 mg/dL (8.5-10.3); CREATININE 0.6 mg/dL (0.4-1.0); POTASSIUM 3.5 mmol/L (3.5-5.0); TOTAL PROTEIN 7.7 g/dL (6.7-8.2)
[2022-12-18 21:54] LABS: BACTERIA,URINE Few /HPF (None Seen); RBC,URINE TNTC /HPF (0-5); SQUAMOUS EPITHELIAL CELL,UR FEW Squamous (<= Few)
--- NOTE | 2022-12-18 23:11 | CT Report ---
PROCEDURE: ABDOMEN/PELVIS WO INDICATIONS: rlq pain TECHNIQUE: Noncontrast 5 mm thick sections acquired from the diaphragms to the symphysis. 5 mm coronal and sagi ttal reformats were then performed. For radiation dose reduction, the following was used: automated exposure control, adjustment of mA and/or kV according to patient size. COMPARISON: None. FINDINGS: Image quality: Excellent. Lung bases: Unremarkable. Heart: Heart is normal in size. ABDOMEN: Liver:Noncontrast evaluation of the liver demonstrates no discrete mass. Multiple scattered calcific ations are demonstrated throughout the liver consistent sequelae of old granulomatous disease. Gallbladder: Within normal limits without calcified gallstones. Biliary ducts: No biliary ductal dilatation. Pancreas: Unremarkable. Spleen: Normal in size. Adrenal Glands: No adrenal nodules. Kidneys and Ureters: No hydronephrosis. Stomach and Bowel: Stomach, small bowel loops, and colon are normal in caliber and wall thickness. T he appendix is normal in appearance. There is colonic diverticulosis without acute diverticulitis. Peritoneum: No abnormal intraperitoneal fluid. No free air. Ventral Wall: No hernia. Abdominal Nodes: No retroperitoneal or mesenteric adenopathy by size criteria. Vessels: Aorta and inferior vena cava are normal in size. PELVIS: Pelvic Organs:An IUD appears in appropriate position within the uterus.Uterus and ovaries appear wi thin normal size limits for age. There is a right ovarian cyst measuring up to 2.4 cm with attenuatio n values slightly higher than expected for simple fluid suggestive of a complex cyst. Bladder: Unremarkable. Pelvic Nodes: No enlarged lymph nodes. Miscellaneous: No inguinal hernias. Bones: Visualized osseous structures demonstrate no suspicious lesions. IMPRESSION: 1. No evidence of appendicitis. 2. Suspected complex right ovarian cyst. If clinically indicated, further evaluation may be obtained with ultrasound. Reviewed by: Steve Mitchell MD on 12/18/2022 11:09 PM [facility] Approved by: Steve Mitchell MD on 12/18/2022 11:09 PM [facility] Station ID: [id number]
[2022-12-19] MEDS ORDERED: KETOROLAC 15 MG/ML VIAL IVP STA (00:27)
[2022-12-19 00:58] LABS: HCG UR QUAL NEGATIVE
--- NOTE | 2022-12-19 00:58 | ED Physician Documentation ---
ED Addendum - Addendum Addendum: 12/19/22 00:55 Patient endorsed to me by Dr. Cast pending CT read. Briefly, 22-year-old woman presenting with right lower abdominal pain rating to the back for the past 3 to 4 days. Wet read by myself and Dr. Cast showed possible small right-sided distal ureteral stone. CT report however discloses only a possible complex right ovarian cyst that is 2.4 cm in size. Discussed with the patient that she will need to follow-up with pcp and [employer] SUPERINTENDENT. Lab work otherwise noncontributory with exception of some leukocytosis. Return precautions given. Impression 1 abdominal pain 2. Ovarian cyst Condition good Disposition Home
[2022-12-19 01:19] VITALS: BP 112/83
== END 2022-12-19 01:19 | disposition home or self-care (01) ==
LOC: ED 21:04
DX: N83.201 Unspecified ovarian cyst, right side (principal); Z87.891 Personal history of nicotine dependence; R10.31 Right lower quadrant pain
CPT/HCPCS: 36415; 80053; 81001; 81003; 81025; 83690; 85025; 87086; 96374; 99283

== ENCOUNTER 2022-12-19 06:36 | Emergency (ER) | payer MEDICAID ==
[2022-12-19] MEDS ORDERED: KETOROLAC 15 MG/ML VIAL IVP STA ×2 (06:55→09:03)
[2022-12-19] MEDS ORDERED: ONDANSETRON 4 MG/2 ML VIAL IVP STA (06:55)
[2022-12-19] MEDS ORDERED: SODIUM CHLORIDE 0.9% 1,000 ML IV STA (06:56)
[2022-12-19] MEDS ORDERED: MORPHINE 2 MG/ML CARPUJECT IVP STA ×2 (07:21→10:27)
[2022-12-19 07:46] LABS: BILIRUBIN,URINE NEGATIVE (NEGATIVE); GLUCOSE, URINE (UA) NEGATIVE (NEGATIVE); KETONES,URINE (UA) NEGATIVE (NEGATIVE); LEUKOCYTE ESTERASE, URINE NEGATIVE (NEGATIVE); NITRITE,URINE NEGATIVE (NEGATIVE); OCCULT BLOOD,URINE MODERATE (NEGATIVE); PROTEIN,URINE NEGATIVE (NEGATIVE); UROBILINOGEN,URINE 0.2 (NORMAL) E.U./dL (NORMAL)
[2022-12-19 07:53] LABS: CLARITY,URINE HAZY (CLEAR)
[2022-12-19 07:57] LABS: BACTERIA,URINE Few /HPF (None Seen); SQUAMOUS EPITHELIAL CELL,UR MOD Squamous (<= Few)
--- NOTE | 2022-12-19 09:01 | ED Physician Documentation ---
PD HPI ABD PAIN - Stated complaint Stated Complaint: ABD PX, COLD, NAUSEA - Chief complaint Chief Complaint: Abd Pain - History obtained from History obtained from: Patient - Additional information Additional information: Patient is a 22-year-old female presenting for evaluation of right-sided abdominal pain that has been intermittent for the last few days but worsening over the past few hours. She was seen last night in the emergency department with labs, UA, noncontrast CT abdomen pelvis which demonstrated a 2 cm right ovarian cyst. She done well with Toradol and Zofran and had prescription sent for the same but was not able to pick them up overnight. She reports having worsening pain. She reports associated nausea. She denies dysuria, vaginal discharge. Her test yesterday was negative. Review of Systems Constitutional: denies: Fever Cardiac: denies: Chest pain / pressure Respiratory: denies: Dyspnea GI: reports: Abdominal Pain, Nausea : denies: Dysuria, Discharge Neurologic: denies: Headache PD PAST MEDICAL HISTORY - Past Medical History Past Medical History: Yes Cardiovascular: None Respiratory: Other Neuro: Fainting Endocrine/Autoimmune: None GI: None PRODUCT SUPPORT CONSULTANT: Ovarian cysts : None Musculoskeletal: None Other Past Medical History: Sinusitis - Past Surgical History Past Surgical History: No - Present Medications Home Medications: Ambulatory Orders Medication Instructions Recorded Confirmed Ondansetron Odt [Zofran] 4 mg TL Q6H PRN #20 tablet 03/25/20 12/19/22 Ketorolac [Toradol] 10 mg PO Q6H PRN #20 tablet 12/19/22 12/19/22 Ondansetron Odt [Zofran] 4 mg TL Q6H PRN #10 tablet 12/19/22 Oxycodone HCl/Acetaminophen 1 each PO Q6H PRN #14 tablet 12/19/22 [Percocet 5-325 mg Tablet] Tamsulosin [Flomax] 0.4 mg PO DAILY #14 cap 12/19/22 - Allergies Allergies/Adverse Reactions: Allergies Allergy/AdvReac Type Severity Reaction Status Date / Time No Known Drug Allergies Allergy Verified 12/19/22 06:48 - Social History Does the pt smoke?: No Smoking Status: Never smoker Does the pt drink ETOH?: No Does the pt have substance abuse?: No - Immunizations Immunizations are current?: Yes - POLST Patient has POLST: No PD ED PE NORMAL - General General: Alert and oriented X 3, No acute distress, Well developed/nourished - HEENT HEENT: Atraumatic - Neck Neck: Supple, no meningeal sign - Cardiac Cardiac: Other (Tachycardic, regular rhythm) - Respiratory Respiratory: No respiratory distress, Clear bilaterally - Abdomen Abdomen: Normal bowel sounds, Soft, Non distended, Other (Right side and lower q uadrant tenderness to palpation, no rebound, no guarding, no mass) - Derm Derm: Warm and dry - Neuro Neuro: Normal speech Results - Vitals Vitals: Vital Signs - 24 hr 12/19/22 12/19/22 12/19/22 06:48 07:36 09:46 Temperature 37.3 C Heart Rate 121 H 113 H 111 H Respiratory 24 20 32 H Rate Blood Pressure 142/97 H 125/69 108/63 O2 Saturation 99 98 96 12/19/22 12/19/22 10:21 11:43 Temperature 36.3 C L Heart Rate 105 H 115 H Respiratory 22 18 Rate Blood Pressure 122/66 102/53 L O2 Saturation 96 98 Oxygen O2 Source Room air - Labs Labs: Laboratory Tests 12/19/22 12/19/22 12/19/22 07:21 07:21 07:30 WBC 10.6 RBC 4.50 Hgb 12.7 Hct 39.9 MCV 88.7 MCH 28.2 MCHC 31.8 L RDW 12.6 Plt Count 213 MPV 11.7 H Neut # (Auto) 10.1 H Lymph # (Auto) 0.4 L [place] # (Auto) 0.0 Eos # (Auto) 0.0 Baso # (Auto) 0.0 Absolute Nucleated RBC 0.00 Nucleated RBC % 0.0 Sodium 141 Potassium 3.5 Chloride 105 Carbon Dioxide 21 Anion Gap 15.0 H BUN 15 Creatinine 0.8 Estimated GFR (MDRD) 90 Glucose 91 Calcium 8.9 Total Bilirubin 0.9 AST 19 ALT 14 Alkaline Phosphatase 60 Total Protein 7.0 Albumin 3.7 Globulin 3.3 Albumin/Globulin Ratio 1.1 Lipase 45 Urine Color YELLOW Urine Clarity HAZY Urine pH 6.0 Ur Specific [place] 1.025 Urine Protein NEGATIVE Urine Glucose (UA) NEGATIVE Urine Ketones NEGATIVE Urine Occult Blood MODERATE H Urine Nitrite NEGATIVE Urine Bilirubin NEGATIVE Urine Urobilinogen 0.2 (NORMAL) Ur Leukocyte Esterase NEGATIVE Urine RBC 6-10 H Urine WBC 4-5 Ur Squamous Epith Cells MOD Squamous H Urine Bacteria Few Ur Microscopic Review INDICATED Urine Culture Comments NOT INDICATED PD Medical Decision Making - ED course Complexity details: reviewed results, re-evaluated patient, d/w patient ED course: Patient is a 22-year-old female presenting for evaluation of right-sided abdominal pain. She was seen last night with unrevealing labs and imaging. She was sent home with prescription for Toradol and Zofran was not able to fill it overnight. She is noted to be tachycardic. She does have mild right-sided abdominal tenderness. Reports a history of anxiety and panic attacks. Labs were repeated without any significant changes. Her urine was also reviewed. I did obtain a pelvic ultrasound as patient was shown to have a cyst yesterday. There is no signs of torsion. In fact on her exam her pain is more to the right flank and mid right abdomen that than in the pelvis. She did improve with doses of IV Toradol and IV morphine. I repeated her CT scan with IV contrast.I personally reviewed her images. There is a 2 mm stone at the right UVJ. Patient does have adequate pain control. She has had a prior kidney stone. Her mother was on the phone with her so I relayed these results with patient and her mother and they are comfortable with plan for discharge and close follow-up. She does not appear septic.She is advised on concerning symptoms to return for. Departure - Departure Disposition: 01 Home, Self Care Clinical Impression: Right ureteral stone, Right ovarian cyst Condition: Stable Instructions: ED Cyst Ovarian, ED Stone Renal W Colic Prescriptions: Tamsulosin [Flomax] 0.4 mg PO DAILY #14 cap Oxycodone HCl/Acetaminophen [Percocet 5-325 mg Tablet] 1 each PO Q6H PRN #14 tablet PRN Reason: pain Ondansetron Odt [Zofran] 4 mg TL Q6H PRN #10 tablet PRN Reason: Nausea / Vomiting Comments: You have a cyst on your right ovary. Your CT scan also shows that you have a small kidney stone measuring 2 mm coming from the right kidney into the bladder and is located in the ureter which is the tube that connects the kidney and the bladder.I am going to send medications to help you pass his kidney stone.I will send your prescriptions to [facility] in [place]. Return to the ER if you have any worsening symptoms such as fever or uncontrolled pain despite the medications you have. I am prescribing a short course of narcotic pain medication for you. These are potentially dangerous and addictive medications that should be used carefully. These medications may constipate you. Take an dghn-emt-ticqpyb stool softener (docusate) twice daily with plenty of water while taking these medications. If you go 24 hours without a bowel movement, take dapz-ful-fodkvpp miralax, per package instructions. Do not drink or drive while taking these medications. If you received narcotic or sedating medications while in the emergency department, do not drive for 24 hours. Store this medication in a safe, secure place and out of reach of children. It is a violation of federal law to give or sell this medication to another person or to use in a manner other than prescribed. The ED will not refill narcotic prescriptions, including prescriptions lost or stolen. To dispose of unwanted medications: 1. [facility] at [address] in [place] has a medication drop box. They accept prescription medications (in pill form) Sunday through Sunday 9:00 a.m. to 5:00 p.m. 2. The [facility] [employer] accepts prescription medications (in pill form only) for disposal year round. Call for more information. 3. Contact the [facility] for the next [facility] sponsored prescription drug collection event. , [phone], or [phone]; Note that many narcotic pain relievers also contain Tylenol/acetaminophen. Please ensure that your total dose of acetaminophen from all sources does not exceed 3 g (3000 mg) per day. Discharge Date/Time: 12/19/22 11:56
[2022-12-19 09:05] LABS: BASOPHILS % (AUTO) 0.2 %; HCT - HEMATOCRIT 39.9 % (37.0-47.0); HGB - HEMOGLOBIN 12.7 g/dL (12.0-16.0); LYMPHOCYTES # (AUTO) 0.4 10^3/uL (1.5-3.5); LYMPHOCYTES % (AUTO) 4.1 %; MEAN CORPUSCULAR HEMOGLOBIN 28.2 pg (27.0-31.0); MEAN CORPUSCULAR HGB CONC 31.8 g/dL (32.0-36.0); MEAN CORPUSCULAR VOLUME 88.7 fL (81.0-99.0); MEAN PLATELET VOLUME 11.7 fL (7.9-10.8); MONOCYTES % (AUTO) 0.3 %; NEUTROPHILS # (AUTO) 10.1 10^3/uL (1.5-6.6); NEUTROPHILS % (AUTO) 95.1 %; PLT - PLATELET COUNT 213 10^3/uL (130-450); RED CELL DISTRIBUTION WIDTH 12.6 % (12.0-15.0); WHITE BLOOD COUNT 10.6 x10^3/uL (4.8-10.8)
[2022-12-19 09:14] LABS: ALBUMIN 3.7 g/dL (3.2-5.5); ALBUMIN/GLOBULIN RATIO 1.1 (1.0-2.2); BILIRUBIN,TOTAL 0.9 mg/dL (0.2-1.0); CALCIUM 8.9 mg/dL (8.5-10.3); CREATININE 0.8 mg/dL (0.4-1.0); POTASSIUM 3.5 mmol/L (3.5-5.0)
[2022-12-19] MEDS ORDERED: iohexoL-300 100 ML VIAL ONE (09:42)
--- NOTE | 2022-12-19 09:50 | Ultrasound Report ---
PROCEDURE: Pelvic w/Transvag+Doppler Ltd INDICATIONS: R sided pain; cyst TECHNIQUE: Real-time scanning was performed of the pelvic organs, with image documentation. Additional endovagi nal scanning was necessary due to incomplete visualization of the adnexal and endometrial structures by transabdominal scanning. Doppler interrogation was performed of the ovaries bilaterally. COMPARISON: None. FINDINGS: Mildly complex right ovarian cyst measuring 2.5 cm. Right ovary otherwise normal on transabdominal im ages. The right ovary is not seen on transvaginal images. Left ovary not identified. Normal size and appearance of the uterus. IMPRESSION: Small volume intermediate echogenicity free fluid in the pelvis, along with a right ovarian cyst leonidas uring 2.5 cm with some low-level internal echoes. Findings suggest recent hemorrhagic cyst rupture. N o findings of torsion. Reviewed by: Travis Morrell MD on 12/19/2022 9:48 AM PST Approved by: Travis Morrell MD on 12/19/2022 9:48 AM PST Station ID: [id number]
[2022-12-19] MEDS ORDERED: iohexoL-300 100 ML VIAL IVP ONE (10:26)
--- NOTE | 2022-12-19 10:40 | CT Report ---
PROCEDURE: ABDOMEN/PELVIS W INDICATIONS: R sided pain CONTRAST: 100ml Omnipaque 300 TECHNIQUE: After the administration of contrast, 5 mm thick sections acquired from the diaphragms to the sym physis. 5 mm thick coronal and sagittal reformats were acquired. For radiation dose reduction, the following was used: automated exposure control, adjustment of mA and/or kV according to patient size . COMPARISON: CT dated 12/18/2022. FINDINGS: Image quality: Excellent. ABDOMEN: Lung bases: Lung bases are clear. Heart size is normal. Solid organs: Liver and spleen are normal in size and enhancement. Gallbladder is normal. Biliary system is non dilated. Pancreas enhances normally. No adrenal nodules. Kidneys demonstrate normal size and enhancement, without hydronephrosis. Peritoneum and bowel: Bowel loops demonstrate normal wall thickness and caliber. No free fluid or a ir. The appendix is normal. Nodes and vessels: No retroperitoneal or mesenteric adenopathy by size criteria. Aorta and inferior vena cava are normal in size. Miscellaneous: No ventral hernias. PELVIS: Genitourinary: Bladder wall thickness is normal. An IUD appears to be in good position. There is a right ovarian cyst measuring 2.4 cm best seen on coronal images unchanged. Mild right hydronephrosis not present on the prior study. A punctate 2 mm hyperdensity is seen in the region of the right UVJ, probably an obstructive stone given interval development of right hydroureteronephrosis. There is rig ht perinephric inflammation. Miscellaneous: No inguinal hernias or adenopathy. Bones: No suspicious bony lesions. No vertebral body compression fractures. IMPRESSION: 2 mm calculus at the right UVJ likely a kidney stone with interval development of right hydroureteronephrosis. Right perinephric inflammation present. Reviewed by: Jamil Aburto on 12/19/2022 10:39 AM PST Approved by: Jamil Aburto on 12/19/2022 10:39 AM PST Station ID: [id number]
[2022-12-19 11:43] VITALS: BP 102/53
== END 2022-12-19 11:56 | disposition home or self-care (01) ==
LOC: ED 06:36
DX: N20.1 Calculus of ureter (principal); N83.201 Unspecified ovarian cyst, right side; Z87.442 Personal history of urinary calculi
CPT/HCPCS: 36415; 74177; 76830; 76856; 80053; 81001; 83690; 85025; 93976; 96361; 96374; 96375; 96376; 99284; Q9967; 81003; 87086